=== PATIENT | female | born 1970 | race Caucasian/White ===

== ENCOUNTER 2024-10-02 10:36 | Emergency (ER) | payer BC, OTHER ==
--- OUTSIDE RECORDS SUMMARY | 2024-10-02 10:39 | XMS REPORT | Continuity of Care Document ---
Author Name Unknown Address [address] [facility] [place] [address] [facility] Address [address] [facility] [place] [address] Care Team Providers Care Electrical Equipment Technician Name Role Phone Galilea Osman Primary Care Physician + Jessie Doss Attending Clinician [phone] Unknown, Attending Attending Clinician Unavailab TORSTEN Caldera Attending Clinician Unavailable Torsten Bhatti Attending Clinician [phone] Unknown, Attending Attending Clinician Unavailab cedric Payers Payer Name Policy Type Policy Number Effective Date Expirati on Date Source [facility]/[employer] MEDICARE GOLD PPO CSNP [id number] 2024 00:00:00 Allergies, Adverse Reactions, Alerts Allergy Name Allergy Type Status Severity Reaction(s) Onset Date Inactive Date Treating Clinician Comments Source NO KNOWN ALLERGIE S Drug Class Active [facility] Social History Social Habit Start Date Stop Date Quantity Comments Source [facility] Tobacco use and exposure 2023-01-29 00:00:00 2023-01-29 00:00:00 Smokeless tobacco non-user [facility] History of Social function 2023-01-29 00:00:00 2023-01-29 00:00:00 [facility] Sex assigned at 1970 00:00:00 1970 00:00:00 [facility] Smoking Status Start Date Stop Date Source Never smoked tobacco [facility] Medications Ordered Medication Name Filled Medication Name Start Date Stop Date Current Medication? Ordering Clinician Indication Dosage Frequency Signature (SIG) Comments Components Source dicyclomine 20 mg tablet 09-30 00:00: 00 Yes [id number] 20mg Take 1 tablet by mouth [address] [facility] ondansetron 4 mg disintegrat ing tablet 09-30 00:00: 00 Yes [id number] 4mg Take 1 tablet by mouth every 8 hours as needed for Nausea and Vomiting (N/V). [facility] loperamide (IMODIUM A-D) 2 mg capsule 09-30 00:00: 00 Yes [id number] 2mg Take 1 capsule by mouth every 4 hours as needed for Diarrhea. [facility] metroNIDAZO LE 500 mg tablet 09-30 00:00: 00 10-08 04:59 :00 Yes [id number] 500mg Take 1 tablet by mouth in the morning and 1 tablet in the evening. Do all this for [address] [facility] benzonatate 200 mg capsule 2022-02 00:00: 00 02-09 05:59 :00 No [id number] 200mg Take 1 capsule by mouth 3 (three) times daily as needed for Cough for up to [address] [facility] Vital Signs Vital Name Observation Time Observation Value Comments S denae Systolic blood pressure 2024-09-30 15:50:00 118 mm[Hg] [facility] Diastolic blood pressure 2024-09-30 15:50:00 66 mm[Hg] [facility] Heart rate 2024-09-30 15:50:00 85 /min [facility] Body temperature 2024-09-30 15:50:[address] [facility] Respiratory rate 2024-09-30 15:50:00 18 /min [facility] Body height 2024-09-30 15:50:00 157.5 cm [facility] Body weight 2024-09-30 15:50:00 82.509 kg [facility] BMI 2024-09-30 15:50:00 33.27 kg/m2 [facility] Oxygen saturation in Arterial blood by Pulse oximetry 2024-09-30 15:50:00 95 /min [facility] Systolic blood pressure 2023-01-30 02:09:00 132 mm[Hg] [facility] Diastolic blood pressure 2023-01-30 02:09:00 82 mm[Hg] [facility] Heart rate 2023-01-30 02:08:00 98 /min [facility] Body temperature 2023-01-30 02:08:[address] [facility] Respiratory rate 2023-01-30 02:08:00 16 /min [facility] Body weight 2023-01-30 02:08:00 68.493 kg [facility] Oxygen saturation in Arterial blood by Pulse oximetry 2023-01-30 02:08:00 98 /min [facility] Procedures Procedure Date / Time Performed Performing Clinicia n Source POCT SARS-COV-2 ANTIGEN (BINAX NOW) 2024-09-30 14:46:[address] [facility] Encounters Start Date/Time End Date/Time Encounter Type Admission Type Attending Clinicians Care Facility Care Department Encounter ID Source 2024-09-30 10:20:00 2024-09-30 11:06:53 Urgent Care Jessie Collazo Unknown, Attending [facility] [id number] [facility] 2023-01-29 20:00:00 2023-01-29 20:18:40 Outpatient R TORSTEN FLORES [facility] [id number] [facility] 2023-01-29 20:00:00 2023-01-29 20:18:40 Urgent Care Torsten Flores Unknown, Attending [facility] [id number] [facility] Results Test Description Test Time Test Comments Results Result Co mments Source [facility]
[2024-10-02] MEDS ORDERED: MORPHINE 4 MG/ML SYR ONE (11:38)
[2024-10-02] MEDS ORDERED: ONDANSETRON 4 MG/2 ML VIAL ONE (11:38)
[2024-10-02] MEDS ORDERED: NA CHLORIDE 0.9% 1,000 ML ONE (11:38)
[2024-10-02] MEDS ORDERED: MAGNES/ALUMIN/SIMET 30ML UCUP ONE (12:03)
[2024-10-02] MEDS ORDERED: LIDOCAINE VISCOUS 2% 10ML ORAL SOLN ONE (12:03)
[2024-10-02 12:11] LABS: Absolute Lymphocytes (CBC) 1.3 K/uL (0.7-4.9); Hematocrit 39.9 % (36.0-45.0); Hemoglobin 13.7 g/dL (12.0-15.0); MCH 30.9 pg (27.0-35.0); MCHC 34.4 g/dL (32.0-36.0); MCV 89.7 fL (80-100); MPV 9.1 fL (7.6-11.3); Nucleated RBC Absolute Count 0.0 (0-0); Nucleated Red Blood Cells % 0.0 % (0-0); RBC Red Blood Cell Count 4.45 M/uL (3.86-4.86); White Blood Count 10.70 thou/uL (4.3-10.9)
[2024-10-02 12:28] LABS: ALT/SGPT 30.0 U/L (13-56); AST/SGOT 12.0 U/L (15-37); Albumin 2.8 g/dL (3.4-5.0); Albumin/Globulin Ratio 0.7 (1.1-1.8); Alkaline Phosphatase 94.0 U/L (45-117); Anion Gap 11.0 mEq/L (5.0-15.0); BUN Blood Urea Nitrogen 15.0 mg/dL (7-18); Globulin 4.1 g/dL (2.3-3.5); Glucose Level 107.0 mg/dL (74-106); Lipase 45.0 U/L (13-75); Potassium 4.0 mEq/L (3.5-5.1)
--- NOTE | 2024-10-02 12:59 | RAD REPORT ---
EXAMINATION: Abdomen Pelvis W Contrast CLINICAL INDICATION: Female, 54 years old.ABD PAIN TECHNIQUE: CT abdomen and pelvis was performed, after the administration of IV contrast, [facility]. Axial, sagittal and coronal reconstructions were obtained. One or more of the following dose reduction techniques were used: Automated exposure control, adjustment of the mA and/o r kV according to patient size, and/or iterative reconstruction. Unless otherwise specified, incidental findings do not require dedicated imaging follow-up. [id number]. COMPARISON: No prior exams FINDINGS: LOWER CHEST: No acute process identified.No significant pericardial effusion. UPPER GI: No significant abnormality. LIVER: Hepatic steatosis, but otherwise unremarkable. GALLBLADDER/BILE DUCTS: No biliary ductal dilatation.? PANCREAS: No mass, ductal dilation, or sofi-pancreatic fluid. SPLEEN: Unremarkable. ADRENALS: No adrenal masses. KIDNEYS AND URETERS: No hydronephrosis.Striated appearance of the right kidney with perinephric stran ding and right-sided urothelial thickening. No obstructing stone.No abscess. ABDOMINAL AORTA AND OTHER VESSELS: Moderate atherosclerotic changes without aortic aneurysm. PERITONEUM: No abnormal free fluid. No free air. LYMPH NODES: No pathologic lymphadenopathy. ABDOMINAL WALL: Unremarkable SMALL BOWEL/COLON: Small bowel has normal course and caliber. No colonic wall thickening or pericolon ic inflammatory changes.Normal appendix. URINARY BLADDER: Underdistended but grossly unremarkable. REPRODUCTIVE ORGANS: Uterus surgically absent. No adnexal abnormality. MUSCULOSKELETAL: Remote appearing T12 compression deformity. ADDITIONAL FINDINGS: None. IMPRESSION: CT findings likely representing right-sided polynephritis. No hydronephrosis. No renal abscess at thi s time.
[2024-10-02 13:44] LABS: Sqamous Epithelial <5 /HPF (None Seen); Urine Culture Reflex Order REFLEXED; Urine Microscopic Reflex YN ORDER UMIC
--- NOTE | 2024-10-02 13:56 | EDPHYS ---
Physician Documentation [facility] Name: Vicki Kelly Age: 54 yrs Sex: Female : 1970 Arrival Date: 10/02/2024 Time: 10:36 Bed 6 Private MD: ED Physician Zachery Daley HPI: 10/02 15:35 This 54 yrs old Female presents to ER via Wheelchair with complaints of dr5 Abdominal Pain. 15:35 The patient presents with abdominal pain in the epigastric area. Onset: The dr5 symptoms/episode began/occurred 1 week(s) ago. Patient is a 54-year-old female with no past medical history coming with abdominal pain with nausea, vomiting, diarrhea. . 16:47 Patient reports she was seen at [facility] urgent care and was diagnosed with dr5 gastroenteritis. She is currently not taking any prescribed medications.. Historical: - Allergies: 11:24 No Known Allergies; me1 - Home Meds: 11:24 None [Active]; me1 - PMHx: 11:24 None; me1 - PSHx: 11:24 Total abdominal hysterectomy; hand surgery; me1 - Immunization history:: Adult Immunizations up to date. - Infectious Disease History:: Denies. - Social history:: Smoking status: Patient reports the use of cigarette tobacco products, smokes one pack cigarettes per day. ROS: 16:47 Constitutional: as per hpi dr5 Exam: 16:47 Constitutional: This is a well developed, well nourished patient who is awake, alert, dr5 and in no acute distress. Head/Face: Normocephalic, atraumatic. Eyes: Pupils equal round and reactive to light, extra-ocular motions intact. Lids and lashes normal. Conjunctiva and sclera are non-icteric and not injected. Cornea within normal limits. Periorbital areas with no swelling, redness, or edema. Neck: Trachea midline, no thyromegaly or masses palpated, and no cervical lymphadenopathy. Supple, full range of motion without nuchal rigidity, or vertebral point tenderness. No Meningismus. Chest/axilla: Normal chest wall appearance and motion. Nontender with no deformity. No lesions are appreciated. Cardiovascular: Regular rate and rhythm with a normal S1 and S2. Normal PMI, no JVD. No pulse deficits. Respiratory: Lungs have equal breath sounds bilaterally, clear to auscultation. No rales, rhonchi or wheezes noted. No increased work of breathing, no retractions or nasal flaring. Abdomen/GI: Soft, non-tender, non-distended Back: No spinal tenderness. No costovertebral tenderness. Full range of motion. Patient did not have any CVA tenderness specifically to right flank. Skin: Warm, dry with normal turgor. Normal color with no rashes, no lesions, and no evidence of cellulitis. MS/ Extremity: Pulses equal, no cyanosis. Neurovascular intact. Full, normal range of motion. Neuro: Awake and alert, GCS 15, oriented to person, place, time, and situation. Cranial nerves II-XII grossly intact. Motor strength 5/5 in all extremities. Sensory grossly intact. Cerebellar exam normal. Normal gait. Vital Signs: 11:20 BP 135 / 72; Pulse 93; Resp 17; Temp 98.5; Pulse Ox 97% ; Weight 80.74 kg; Height 5 ft. me1 2 in. ; Pain 7/10; 14:31 BP 114 / 98; Pulse 91; Resp 17; Pulse Ox 99% on R/A; ap3 11:20 Body Mass Index 32.56 (80.74 kg, 157.48 cm) me1 11:20 Pain Scale: Adult me1 MDM: 10:38 Medical Screening Exam initiated dr5 16:47 Differential diagnosis: non-specific abd pain, pancreatitis, Peptic Ulcer Disease, dr5 Peritonitis, Pyelonephritis, Ureterolithiasis, urinary tract infection. Data reviewed: vital signs, nurses notes, lab test result(s), amylase and lipase, CBC, white blood cell count, hemoglobin, hematocrit, platelets, electrolytes, sodium, potassium, chloride, serum bicarbonate, BUN, creatinine, serum glucose, urinalysis, bacteruria, UPT: negative radiologic studies, CT scan. Consideration of Admission/Observation Escalation of care including admission/observation considered. This question considered patient was febrile with positive CVA tenderness and elevated white blood cell count.. I considered the following discharge prescriptions or medication management in the emergency department I discussed and recommended Over The Counter medications, Medications were administered in the Emergency Department. See MAR. Historians other than the Patient: Daughter/Son: Daughter. Care significantly affected by the following Social Determinants of Health: Poor access to healthcare and/or lack of insurance, Poor access to transportation, Problems related to employment. Counseling: I had a detailed discussion with the patient and/or guardian regarding the historical points, exam findings, and any diagnostic results supporting the discharge/admit diagnosis, the presence of at least one elevated blood pressure reading (>120/80) during this emergency department visit, lab results, radiology results, the need for outpatient follow up, for definitive care, a family practitioner, to return to the emergency department if symptoms worsen or persist or if there are any questions or concerns that arise at home. Medication response: Mary Arredondo. Response to treatment: the patient's symptoms have resolved after treatment, the patient's condition has returned to base line. Special discussion: I discussed with the patient/guardian in detail that at this point there is no indication for admission to the hospital. It is understood, however, that if the symptoms persist or worsen the patient needs to return immediately for re-evaluation. Based on the history and exam findings, there is no indication for further emergent testing or inpatient evaluation. I discussed with the patient/guardian the need to see the primary care provider for further evaluation of the symptoms. Rocephin Given in ER. Will give patient Vantin for complicated UTI.. ED course: Rocephin IV given in ER. Patient is well-appearing and feels much better. No CVA tenderness noted on exam. All labs and CT scan results given to patient. All questions answered. Will start patient on antibiotics. Patient reports she is reliable to take her antibiotics every 12 hours. Strict ER precautions given.. 10/02 11:23 Order name: CBC with Diff; Complete Time: 12:18 [facility] 10/02 11:23 Order name: CMP; Complete Time: 12:36 [facility] 10/02 11:23 Order name: Lipase; Complete Time: 12:36 [facility] 10/02 11:23 Order name: Test, Urine; Complete Time: 13:44 [facility] 10/02 13:10 Order name: UA Rfx Rafael Cult if indicated; Complete Time: 13:51 [facility] 10/02 13:47 Order name: Urine Culture [facility] 10/02 11:23 Order name: CT Abd/Pelvis - IV Contrast Only; Complete Time: 13:09 [facility] 10/02 11:23 Order name: IV Saline Lock; Complete Time: 12:04 [facility] 10/02 11:23 Order name: Labs collected and sent; Complete Time: 12:04 dr5 Administered Medications: 12:00 Drug: Ondansetron IVP 4 mg IVP once; over 2 minutes Route: IVP; Site: right antecubital;aa5 14:31 Follow up: Response: No adverse reaction; Nausea is decreased ap3 12:00 Drug: morphine IVP or IV 4 mg IVP once over 4 mins Route: IVP; Infused Over: 4 mins; aa5 Site: right antecubital; 14:31 Follow up: Response: No adverse reaction; Pain is decreased ap3 12:00 Drug: NS 0.9% IV 1000 ml IV at 1 bolus Per protocol; to be given as a bolus over 60 aa5 minutes Route: IV; Rate: 1 bolus; Site: right antecubital; 14:31 Follow up: IV Status: Completed infusion; IV Intake: 1000ml ap3 12:04 Drug: GI Cocktail without - (Maalox PO 30 ml, Lidocaine Mucous Membrane 2 % 15 aa5 ml) PO once Route: PO; 14:30 Follow up: Response: No adverse reaction ap3 14:30 Drug: Rocephin IV 1 grams IV at per protocol once; Given slow IV push per pharmacy ap3 instructions Route: IV; Rate: per protocol; Site: right antecubital; 15:24 Follow up: IV Status: Completed infusion ap3 14:30 Drug: HYDROcodone-acetaminophen PO 5 mg-325 mg 2 tabs PO once Route: PO; ap3 15:24 Follow up: Response: No adverse reaction; Pain is decreased ap3 Disposition Summary: 10/02/24 13:55 Discharge Ordered Notes: Location: Home dr5 Condition: Stable dr5 Diagnosis - Pyelonephritis acute dr5 - UTI/ Urinary tract infection, site not specified dr5 Followup: dr5 - With: Emergency Department - When: As needed - Reason: Worsening of condition Followup: dr5 - With: Private Physician - When: 1 - 2 days - Reason: Recheck today's complaints, Continuance of care, Re-evaluation by your physician Discharge Instructions: - Discharge Summary Sheet dr5 - Pyelonephritis, Adult dr5 - Urinary Tract Infection, Adult, Jmez-pl-Rcab dr5 Forms: - Medication Reconciliation Form dr5 - Antibiotic Education dr5 - Prescription Opioid Use dr5 - Patient Portal Instructions dr5 - Leadership Thank You Letter dr5 Prescriptions: - Tramadol 50 mg Oral Tablet - take 1 tablet ORAL route every 8 hours as needed; 12 tablet; Refills: 0, dr5 Product Selection Permitted - cefpodoxime 200 mg Oral tablet - take 1 tablet ORAL route every 12 hours for 10 days with food; 20 tablet; dr5 Refills: 0, Product Selection Permitted Signatures: Dispatcher [employer] Shira Paula, RN RN aa5 Adali Silverio RN RN ap3 Marilin Douglas RN RN me1 Daniel Pena, SVP MARKETING-C SVP MARKETING-Cdr5 Corrections: (The following items were deleted from the chart) 11:24 11:24 CBC+H.LAB.BRZ ordered. EDMS EDMS 11:24 11:24 COMPREHENSIVE METABOLIC PANEL+C.LAB.BRZ ordered. EDMS EDMS 11:24 11:24 LIPASE+C.LAB.BRZ ordered. EDMS EDMS 11:24 11:24 Test, Urine+UC.LAB.BRZ ordered. EDMS EDMS 11:24 11:24 Abdomen Pelvis W Con+CT.RAD.BRZ ordered. EDMS EDMS
--- NOTE | 2024-10-02 13:56 | ER ---
Nurse's Notes [facility] Name: Vicki Kelly Age: 54 yrs Sex: Female : 1970 Arrival Date: 10/02/2024 Time: 10:36 Bed 6 Private MD: Diagnosis: Pyelonephritis acute;UTI/ Urinary tract infection, site not specified Presentation: 10/02 11:20 Chief complaint: Patient states: epigastric abdominal pain with n/v/d, fatigue and me1 headache since last Saturday. Pain level 7/10 "pressure". Coronavirus screen: Vaccine status: Patient reports receiving the 2nd dose of the covid vaccine. Ebola Screen: No symptoms or risks identified at this time. Initial Sepsis Screen: Does the patient meet any 2 criteria? HR > 90 bpm. Does the patient have a suspected source of infection? No. Patient's initial sepsis screen is negative. Risk Assessment: Do you want to hurt yourself or someone else? Patient reports no desire to harm self or others. Onset of symptoms was September 27, 2024. 11:20 Method Of Arrival: Wheelchair me1 11:20 Acuity: ELLIS 3 me1 Historical: - Allergies: 11:24 No Known Allergies; me1 - Home Meds: 11:24 None [Active]; me1 - PMHx: 11:24 None; me1 - PSHx: 11:24 Total abdominal hysterectomy; hand surgery; me1 - Immunization history:: Adult Immunizations up to date. - Infectious Disease History:: Denies. - Social history:: Smoking status: Patient reports the use of cigarette tobacco products, smokes one pack cigarettes per day. Screenin:30 [facility] ED Fall Risk Assessment (Adult) History of falling in the last 3 months, aa5 including since admission No falls in past 3 months (0 pts) Confusion or Disorientation No (0 pts) Intoxicated or Sedated No (0 pts) Impaired Gait No (0 pts) Mobility Assist Device Used No (0 pt) Altered Elimination No (0 pt) Score/Fall Risk Level 0 - 2 = Low Risk Oriented to surroundings, Maintained a safe environment, Educated pt \\T\\ family on fall prevention, incl call for assistance when getting out of bed, Assessed \\T\\ reinforced patient's understanding of fall precautions. Abuse screen: Denies threats or abuse. Nutritional screening: No deficits noted. Tuberculosis screening: No symptoms or risk factors identified. Assessment: 11:30 General: Appears uncomfortable, Behavior is calm, cooperative, Reports fatigue for >3 aa5 days. Pain: Complains of pain in epigastric area, right upper quadrant, left upper quadrant, right lower quadrant and left lower quadrant and head Pain currently is 7 out of 10 on a pain scale. Quality of pain is described as aching, crampy, Pain began 5-6 days ago Is intermittent. Neuro: Level of Consciousness is awake, alert, obeys commands, Oriented to person, place, time, situation. Cardiovascular: Patient's skin is warm and dry. Respiratory: Airway is patent Respiratory effort is even, unlabored, Respiratory pattern is regular, symmetrical. GI: Abdomen is round non-distended, Bowel sounds present X 4 quads. Abd is soft and non tender X 4 quads. Reports diarrhea, nausea, vomiting. : No signs and/or symptoms were reported regarding the genitourinary system. EENT: No signs and/or symptoms were reported regarding the EENT system. Derm: Skin is pink, warm \\T\\ dry. Musculoskeletal: Range of motion: intact in all extremities. 12:00 Reassessment: Patient is alert, oriented x 3, equal unlabored respirations, skin aa5 warm/dry/pink. Vital Signs: 11:20 BP 135 / 72; Pulse 93; Resp 17; Temp 98.5; Pulse Ox 97% ; Weight 80.74 kg; Height 5 ft. me1 2 in. ; Pain 7/10; 14:31 BP 114 / 98; Pulse 91; Resp 17; Pulse Ox 99% on R/A; ap3 11:20 Body Mass Index 32.56 (80.74 kg, 157.48 cm) me1 11:20 Pain Scale: Adult me1 ED Course: 10:37 Patient arrived in ED. rg4 10:38 Daniel [facility] FNP-C [facility] 10:38 Zachery Daley MD is Attending Physician. dr5 11:24 Triage completed. me1 11:24 Arm band placed on Patient placed in waiting room. me1 11:26 Shira Suarez, FRANK is Primary Nurse. aa5 11:30 Patient has correct armband on for positive identification. Bed in low position. Call aa5 light in reach. Side rails up X 1. Adult w/ patient. Pulse ox on. NIBP on. 11:55 Initial lab(s) drawn, by me, sent to lab. Inserted saline lock: 20 gauge in right aa5 antecubital area, using aseptic technique. Blood collected. Flushed with 10 mL NS. 12:32 No provider procedures requiring assistance completed. aa5 12:50 CT Abd/Pelvis - IV Contrast Only In Process Unspecified. EDMS 14:32 Provided Education on: medications prior to administration . ap3 15:25 IV discontinued, intact, bleeding controlled, No redness/swelling at site. Pressure ap3 dressing applied. Administered Medications: 12:00 Drug: Ondansetron IVP 4 mg IVP once; over 2 minutes Route: IVP; Site: right antecubital;aa5 14:31 Follow up: Response: No adverse reaction; Nausea is decreased ap3 12:00 Drug: morphine IVP or IV 4 mg IVP once over 4 mins Route: IVP; Infused Over: 4 mins; aa5 Site: right antecubital; 14:31 Follow up: Response: No adverse reaction; Pain is decreased ap3 12:00 Drug: NS 0.9% IV 1000 ml IV at 1 bolus Per protocol; to be given as a bolus over 60 aa5 minutes Route: IV; Rate: 1 bolus; Site: right antecubital; 14:31 Follow up: IV Status: Completed infusion; IV Intake: 1000ml ap3 12:04 Drug: GI Cocktail without - (Maalox PO 30 ml, Lidocaine Mucous Membrane 2 % 15 aa5 ml) PO once Route: PO; 14:30 Follow up: Response: No adverse reaction ap3 14:30 Drug: Rocephin IV 1 grams IV at per protocol once; Given slow IV push per pharmacy ap3 instructions Route: IV; Rate: per protocol; Site: right antecubital; 15:24 Follow up: IV Status: Completed infusion ap3 14:30 Drug: HYDROcodone-acetaminophen PO 5 mg-325 mg 2 tabs PO once Route: PO; ap3 15:24 Follow up: Response: No adverse reaction; Pain is decreased ap3 Medication: 12:32 VIS not applicable for this client. aa5 Intake: 14:31 IV: 1000ml; Total: 1000ml. ap3 Outcome: 13:55 Discharge ordered by MD. dr5 15:24 Discharged to home via wheelchair, with family, ap3 15:24 Condition: good 15:24 Discharge instructions given to patient, family, Instructed on discharge instructions, follow up and referral plans. medication usage, Demonstrated understanding of instructions, follow-up care, medications, Prescriptions given X 2, 15:25 Patient left the ED. ap3 Signatures: Dispatcher [employer] EDShira Mcelroy RN RN aa5 Vinita Hung 4 Adali Silverio RN RN ap3 Marilin Douglas RN RN me1 Daniel Pena, SHEAR SETTER-C SHEAR SETTER-Cdr5
[2024-10-02] MEDS ORDERED: NA CHLORIDE 0.9% 50 ML ONE (14:10)
[2024-10-02] MEDS ORDERED: CEFTRIAXONE 1000 MG/VIAL ONE (14:10)
[2024-10-02] MEDS ORDERED: HYDROCODONE/APAP 5/325 MG TAB ONE (14:11)
[2024-10-02 17:12] VITALS: BP 135/72; TEMP 98.5; O2SAT 97
== END 2024-10-02 15:25 | disposition home or self-care (01) ==
LOC: ER 10:36
DX: N10 Acute pyelonephritis (principal); N39.0 Urinary tract infection, site not specified
CPT/HCPCS: 96365; 96361; 87088; 85025; 81001; 87086; 36415; 81025; 83690; 80053; 74177; 96375; 99284; Q9967; J2405; J7030; J0696